=== PATIENT | female | born 1985 | race Caucasian/White ===

== ENCOUNTER → 2017-04-02 | Outpatient (CLI) | payer OTHER ==
[~2017-04-02] MED LIST: Z.0.NO CURRENT MEDS
[2017-04-02 09:57] LABS: BACTERIA, URINE RARE /hpf; BLOOD, URINE NEG (NEG); GLUCOSE,URINE NEG (NEG); KETONE, URINE NEG (NEG); NITRITE,URINE NEG (NEG); SQUAMOUS EPITHELIAL CELL URINE 3 /hpf (0-5); URINE COLOR YELLOW (YELLW/STRAW)
[2017-04-02 10:00] LABS: AUTOMATED NEUTROPHIL # 6.1 TH/MM3 (1.8-7.7); BASOPHIL % 0.6 % (0.0-2.0); EOSINOPHIL # 0.3 TH/MM3 (0-0.4); EOSINOPHIL % 3.2 % (0.0-4.0); HEMATOCRIT 37.5 % (35.0-46.0); HEMO FLAGS DIFF FINAL; LYMPH % 15.2 % (9.0-44.0); LYMPHOCYTE # 1.2 TH/MM3 (1.0-4.8); MEAN CELL VOLUME 85.3 FL (80.0-100.0); MEAN CORPUSCULAR HEMOGLOBIN 28.9 PG (27.0-34.0); MEAN CORPUSCULAR HGB CONC 33.9 % (32.0-36.0); MONO % 6.7 % (0.0-8.0); NEUT % 74.3 % (16.0-70.0); PLATELET COUNT 233 TH/MM3 (150-450); RED CELL DISTRIBUTION WIDTH 13.1 % (11.6-17.2); WHITE BLOOD COUNT 8.2 TH/MM3 (4.0-11.0)
[2017-04-02 10:39] LABS: RUBELLA IGG ANTIBODY 78.4 IU/mL (10.0-500.0); RUBELLA STATUS IMMUNE (IMMUNE)
[2017-04-02 10:52] LABS: FREE T4 1.04 NG/DL (0.76-1.46)
[2017-04-02 13:42] LABS: RAPID PLASMA REAGIN SCREEN NON-REACTIVE (NON-REACTVE)
[2017-04-04 19:52] LABS: MEASLES AB IGM <1:20 (())
== END ==
LOC: CLAB 09:18
PROVIDERS: ATTEND Obstetrics & Gynecology
DX: Z11.4 Encounter for screening for human immunodeficiency virus [HIV] (principal); R82.90 Unspecified abnormal findings in urine; Z33.1 Pregnant state, incidental
CPT/HCPCS: 36415; 81001; 84144; 84439; 84443; 84702; 85025; 86592; 86703; 86762; 86765; 86850; 86900; 86901; 87086; 87340

== ENCOUNTER → 2017-08-19 | Outpatient (CLI) | payer OTHER ==
[2017-08-19 08:16] LABS: HEMATOCRIT 34.5 % (35.0-46.0); MEAN CELL VOLUME 86.8 FL (80.0-100.0); MEAN CORPUSCULAR HEMOGLOBIN 29.1 PG (27.0-34.0); MEAN CORPUSCULAR HGB CONC 33.5 % (32.0-36.0); PLATELET COUNT 219 TH/MM3 (150-450); RED BLOOD COUNT 3.97 MIL/MM3 (4.00-5.30); RED CELL DISTRIBUTION WIDTH 13.1 % (11.6-17.2); REVIEW FLAG FINAL; WHITE BLOOD COUNT 10.8 TH/MM3 (4.0-11.0)
== END ==
LOC: CLAB 06:53
PROVIDERS: ATTEND Obstetrics & Gynecology
DX: Z33.1 Pregnant state, incidental (principal); Z13.9 Encounter for screening, unspecified; R74.0 Nonspecific elevation of levels of transaminase and lactic acid dehydrogenase [LDH]
CPT/HCPCS: 36415; 82951; 85027

== ENCOUNTER 2017-11-19 17:10 | Inpatient (IN) | payer OTHER ==
[~2017-11-19] VITALS: Ht 160 cm; Wt 76.0 kg
[2017-11-19 19:53] VITALS: BP 134/80; PULSE 86
[2017-11-19 19:54] VITALS: RESP 18; TEMP 98.2
[2017-11-19] MEDS: LACTATED RINGER'S 1000 ML IV SCH (20:00)
[2017-11-19] MEDS ORDERED: NS 1000 ML IV PRN (20:00)
[2017-11-19] MEDS ORDERED: LIDOCAINE HCL 1% 50 ML VIAL I-DERMAL PRN (20:00)
[2017-11-19] MEDS: LACTATED RINGER'S 1000 ML INJ 1,000 ML IV SCH (20:00)
[2017-11-19] MEDS ORDERED: LIDOCAINE HCL 1% 50 ML VIAL INFIL PRN (20:00)
[2017-11-19] MEDS ORDERED: diphenhydrAMINE HCL 50 MG CAP PO PRN (20:00)
[2017-11-19] MEDS ORDERED: DINOPROSTONE 10 MG INSERT-LEAVE FOR 12 HOURS VAGINAL ONE (20:00)
[2017-11-19] MEDS ORDERED: CITRIC ACID-SODIUM CITRATE LIQ 30 ML UDC PO SCH (20:00)
[2017-11-19] MEDS ORDERED: LACTATED RINGER'S 1000 ML BOLUS IV PRN (20:00)
[2017-11-19] MEDS ORDERED: ONDANSETRON HCL 4 MG/2 ML VIAL IV PUSH PRN (20:00)
[2017-11-19] MEDS ORDERED: MINERAL OIL 10 ML VIAL TOPICAL PRN (20:00)
[2017-11-19] MEDS ORDERED: NS 500 ML BOLUS IV PRN (20:00)
[2017-11-19 20:48] LABS: BASOPHIL % 0.2 % (0.0-2.0); EOSINOPHIL # 0.2 TH/MM3 (0-0.4); EOSINOPHIL % 1.5 % (0.0-4.0); HEMATOCRIT 32.6 % (35.0-46.0); HEMOGLOBIN 11.2 GM/DL (11.6-15.3); LYMPH % 13.7 % (9.0-44.0); LYMPHOCYTE # 1.5 TH/MM3 (1.0-4.8); MEAN CELL VOLUME 80.7 FL (80.0-100.0); MEAN CORPUSCULAR HEMOGLOBIN 27.7 PG (27.0-34.0); MEAN CORPUSCULAR HGB CONC 34.3 % (32.0-36.0); MEAN PLATELET VOLUME 9.1 FL (7.0-11.0); MONO % 9.4 % (0.0-8.0); NEUT % 75.2 % (16.0-70.0); PLATELET COUNT 276 TH/MM3 (150-450); RED BLOOD COUNT 4.04 MIL/MM3 (4.00-5.30); RED CELL DISTRIBUTION WIDTH 14.4 % (11.6-17.2); WHITE BLOOD COUNT 10.6 TH/MM3 (4.0-11.0)
[2017-11-19 21:20] LABS: BILIRUBIN, URINE NEG (NEG); BLOOD, URINE NEG (NEG); GLUCOSE,URINE NEG (NEG); KETONE, URINE NEG (NEG); MUCUS URINE FEW /lpf (OCC); NITRITE,URINE NEG (NEG); PH, URINE 6.5 (5.0-8.5); SQUAMOUS EPITHELIAL CELL URINE 18 /hpf (0-5); URINE COLOR YELLOW (YELLW/STRAW); URINE LEUKOCYTE ESTERASE SMALL (NEG)
[2017-11-19 23:03] VITALS: BP 122/66; PULSE 81
[2017-11-19 23:15] VITALS: RESP 18; TEMP 98
[2017-11-20] VITALS (94 sets, daily range): BP systolic 105–144; BP diastolic 55–87; PULSE 67–147; RESP 16–22; TEMP 97.6–98.7; O2SAT 98
[2017-11-20] MEDS: LACTATED RINGER'S 1000 ML INJ 1,000 ML IV SCH ×2 (04:00→14:36)
[2017-11-20] MEDS: LACTATED RINGER'S 1000 ML IV SCH ×3 (04:00→16:48)
[2017-11-20] MEDS ORDERED: OXYTOCIN 30 UNITS-500ML PREMIX 500 ML ONE (06:12)
[2017-11-20] MEDS ORDERED: OXYTOCIN 30 UNITS/NS 500ML PREMIX IV PRN (06:30)
[2017-11-20] MEDS ORDERED: INFLUENZA VIRUS VACCINE (QUADRIVALENT) 0.5 ML SYR IM ONE (10:00)
[2017-11-20] MEDS ORDERED: ePHEDrine/NS 25 MG/5 ML SYRINGE ONE (10:20)
[2017-11-20] MEDS ORDERED: fentaNYL 2MCG-BUPIV 0.125% INJ 100 ML ONE (10:20)
--- NOTE | 2017-11-20 11:58 | MH ---
cc: Brando Boo MD DATE OF ADMISSION: 11/19/2017 ADMISSION DIAGNOSIS: at 40-41 weeks. REASON FOR ADMISSION: Induction of labor. HISTORY OF PRESENT ILLNESS: The patient is a 32-year-old white female, para 0, LMP of 02/10/2017, EDC of 11/17/2017. Her course was benign. Early ultrasounds agree with her EDC. Her labs include Rh positive, VDRL nonreactive, rubella immune, rubeola immune, HENDERSON negative, Pap negative, glucose screen was elevated. Her 3-hour GTT was normal. She has become postdates. Ultrasound today shows an EFW of 3916 grams, normal fluid, vertex presentation, posterior placenta. Her cervix is closed. She desired to proceed with a trial of labor and requests induction at this time. PAST MEDICAL HISTORY/PREVIOUS SURGERY: None. ALLERGIES: NONE. TRANSFUSIONS: None. MEDICATIONS: Vitamins. SOCIAL HISTORY: She is . She is an RN at [employer]. Alcohol, tobacco and drugs are none. PHYSICAL EXAMINATION: VITAL SIGNS: Her height is 5 feet 3. HEENT: Normal. CHEST: Clear. HEART:: Regular rate. BREASTS: Symmetrical. ABDOMEN: Gravid, EFW 300 grams. Cervix is closed. Vertex is still high. ASSESSMENT: As above. PLAN: I have discussed the situation with the patient and in detail. I discussed her term postdate status, option to await spontaneous labor, trial of induction or proceed to section. They would like to proceed with delivery. They are aware should she have failure to progress or distress, she will need delivery. They are aware that the size is such that she may not be able to deliver vaginally, but would like a trial of labor. She is now admitted for same. She is GBS culture negative. MD ALFREDO Abdullahi/SA/rh , 08:54 PM , 09:12 PM MTDJayy
[2017-11-20] MEDS ORDERED: NO SYSTEM NARCOTICS PRN (13:00)
[2017-11-20] MEDS ORDERED: DO NOT ADMINISTER ANTICOAGULANTS PRN (13:00)
[2017-11-20] MEDS ORDERED: fentaNYL 2MCG-BUPIV 0.125% 100 ML EPIDURAL SCH (13:00)
[2017-11-20] MEDS ORDERED: ePHEDrine/NS 25 MG/5 ML SYRINGE IV PUSH PRN (13:00)
[2017-11-20] MEDS ORDERED: MEASLES, MUMPS, RUBELLA VACCINE 0.5 ML VIAL SQ ONE (16:00)
[2017-11-20] MEDS ORDERED: LIDOCAINE HCL 1% 20 ML VIAL ONE ×2 (16:55→19:47)
[2017-11-20] MEDS ORDERED: KETOROLAC TROMETHAMINE 60 MG/2 ML (IM) VIAL IM ONE (19:34)
[2017-11-20] MEDS ORDERED: ACETAMINOPHEN 1000 MG/100 ML 100 ML IV ONE (19:55)
[2017-11-20] MEDS ORDERED: oxyCODONE/ACETAMINOPHEN 5 MG/325 MG TAB PO PRN (20:00)
[2017-11-20] MEDS ORDERED: ZOLPIDEM TARTRATE 5 MG TAB PO PRN (20:00)
[2017-11-20] MEDS ORDERED: ONDANSETRON ODT 4 MG TAB PO PRN (20:00)
[2017-11-20] MEDS ORDERED: SODIUM CHLORIDE 0.9% FLUSH 10 ML FLUSH IV FLUSH PRN (20:00)
[2017-11-20] MEDS ORDERED: OXYTOCIN 30 UNITS-500ML PREMIX 500 ML IV SCH (20:00)
[2017-11-20] MEDS ORDERED: ALUMINUM/MAGNESIUM/SIMETH 30 ML CUP PO PRN (20:00)
[2017-11-20] MEDS ORDERED: SODIUM CHLORIDE 0.9% FLUSH 10 ML FLUSH IV FLUSH SCH (21:00)
[2017-11-20] MEDS: WITCH HAZEL 50%/GLYCERIN 12.5% 40 PAD JAR TOPICAL PRN (21:43)
[2017-11-20] MEDS: BENZOCAINE 20% TOPICAL SPRAY 60 ML CAN TOPICAL PRN (21:44)
[2017-11-21] MEDS: ACETAMINOPHEN 325 MG TAB PO PRN ×2 (04:53→12:23)
[2017-11-21] MEDS: IBUPROFEN 800 MG TAB PO PRN ×3 (04:53→19:52)
[2017-11-21 07:00] VITALS: BP 136/66; PULSE 71; RESP 18; TEMP 98.1; O2SAT 99
[2017-11-21 07:32] LABS: BASOPHIL % 0.2 % (0.0-2.0); EOSINOPHIL # 0.1 TH/MM3 (0-0.4); EOSINOPHIL % 0.6 % (0.0-4.0); HEMATOCRIT 27.6 % (35.0-46.0); HEMOGLOBIN 9.6 GM/DL (11.6-15.3); LYMPHOCYTE # 1.6 TH/MM3 (1.0-4.8); MEAN CORPUSCULAR HGB CONC 34.6 % (32.0-36.0); MEAN PLATELET VOLUME 8.6 FL (7.0-11.0); MONO % 9.1 % (0.0-8.0); MONOCYTE # 1.5 TH/MM3 (0-0.9); NEUT % 80.1 % (16.0-70.0); PLATELET COUNT 198 TH/MM3 (150-450); RED BLOOD COUNT 3.41 MIL/MM3 (4.00-5.30); RED CELL DISTRIBUTION WIDTH 14.6 % (11.6-17.2); WHITE BLOOD COUNT 16.2 TH/MM3 (4.0-11.0)
[2017-11-21] MEDS: DOCUSATE SODIUM 50 MG/SENNA 8.6 MG TAB PO PRN (12:26)
[2017-11-21] MEDS: oxyCODONE/ACETAMINOPHEN 5 MG/325 MG TAB PO PRN (19:52)
[2017-11-21 20:43] VITALS: BP 120/74; PULSE 76; RESP 18; TEMP 98.1
[2017-11-22] MEDS: DOCUSATE SODIUM 50 MG/SENNA 8.6 MG TAB PO PRN ×2 (00:03→13:34)
[2017-11-22] MEDS: oxyCODONE/ACETAMINOPHEN 5 MG/325 MG TAB PO PRN ×4 (00:04→13:34)
[2017-11-22] MEDS: IBUPROFEN 800 MG TAB PO PRN ×2 (04:57→13:35)
[2017-11-22 07:00] VITALS: BP 118/72; PULSE 75; RESP 18; TEMP 98
[2017-11-22] MEDS: BENZOCAINE 20% TOPICAL SPRAY 60 ML CAN TOPICAL PRN (07:18)
[2017-11-22] MEDS: WITCH HAZEL 50%/GLYCERIN 12.5% 40 PAD JAR TOPICAL PRN (07:19)
[2017-11-22] MEDS ORDERED: OXYC1TAB63 PO (10:44)
--- NOTE | 2017-11-22 10:44 | HHI.DCPOC ---
Discharge Care Plan Report Symptoms to Your Doctor -Temperature above 100.5 degrees -Redness, of incision or excessive or foul smelling drainage -Unusual pain or calf pain -Increased vaginal bleeding -Painful or difficulty urinating -Feelings of extreme sadness or anxiety after 2 weeks Goals to Promote Your Health * To prevent worsening of your condition and complications * To maintain your health at the optimal level Directions to Meet Your Goals Take your medications as prescribed Follow your dietary instruction Follow activity as directed Ensure plenty of rest for recovery Drink fluids for hydration Keep your appointments as scheduled Take your immunizations and boosters as scheduled If your symptoms worsen call your PCP, if no PCP go to Urgent Care Center or Emergency Room Smoking is Dangerous to Your Health. Avoid second hand smoke Call the 24-hour crisis hotline for domestic abuse at Brando Boo MD Nov 22, 2017 10:44
[2017-11-22] MEDS ORDERED: DIPHTH/TETANUS/ACEL PERTUSSIS (BOOSTER) 0.5 ML VIAL/PFS IM ONE (12:00)
--- NOTE | 2017-11-22 14:56 | MD ---
cc: Brando Boo MD DATE OF DISCHARGE: 11/22/2017 ADMITTING DIAGNOSIS: at 40-41 weeks. DISCHARGE DIAGNOSIS: at 40-41 weeks, delivered. HISTORY OF PRESENT ILLNESS: A 32-year-old white female, para 0, LMP of 02/10/2017, EDC of 11/17/2017. Her preoperative course had been benign. PAST MEDICAL HISTORY: Negative. Her progressed normally. Strep culture was negative. She became postdates and requested induction of labor. HOSPITAL COURSE: Admitted for Cervidil on the night of 11/19/2017, was switched to Pitocin the next day and progressed to a spontaneous vaginal delivery on the evening of 11/20/2017. A viable vigorous female, Apgars 7 and 9, weight 7 pounds 9 ounces. Baby was named Chanelle and she was . did well. She was discharged home in excellent condition on 11/22/2017. She was advised NPV, light activity and return to see me in 6 weeks. She is to call for abnormal pain, bleeding, temperature, signs of infection and depression. She was given a script of Percocet 5 one p.o. q. 4 hours p.r.n., #30, of course take her iron pills daily. MD ALFREDO Abdullahi/TL/rr , 10:53 AM , 01:28 PM
== END 2017-11-22 14:52 | disposition home or self-care (01) | DRG 775 ==
LOC: H2EB 17:10 → H1EA 11-20 21:30
PROVIDERS: ADMIT Obstetrics & Gynecology; ATTEND Obstetrics & Gynecology
PROC: 3E0P7VZ Introduction of Hormone into Female Reproductive, Via Natural or Artificial Opening (ICD-10-PCS; 2017-11-19)
PROC: 10E0XZZ Delivery of Products of Conception, External Approach (ICD-10-PCS; principal; 2017-11-20)
PROC: 0W8NXZZ Division of Female Perineum, External Approach (ICD-10-PCS; 2017-11-20)
PROC: 0HQ9XZZ Repair Perineum Skin, External Approach (ICD-10-PCS; 2017-11-20)
PROC: 3E033VJ Introduction of Other Hormone into Peripheral Vein, Percutaneous Approach (ICD-10-PCS; 2017-11-20)
PROC: 3E0R3BZ Introduction of Anesthetic Agent into Spinal Canal, Percutaneous Approach (ICD-10-PCS; 2017-11-20)
PROC: 00HU33Z Insertion of Infusion Device into Spinal Canal, Percutaneous Approach (ICD-10-PCS; 2017-11-20)
DX: O48.0 Post-term pregnancy (principal); O71.82 Other specified trauma to perineum and vulva; Z37.0 Single live birth; Z3A.41 41 weeks gestation of pregnancy
CPT/HCPCS: 80307; 81001; 85025; 86900; 86901; 90715; G0481; J0131; J1885; J2405; J2590; J3010; J7120; Q0163